=== PATIENT | female | born 1990 | race African-American/Black ===

== ENCOUNTER 2016-07-13 06:23 | Inpatient (IN) | payer OTHER ==
--- NOTE | ~2016-07-13 | PA ---
Unit #: [id number] #: [id number] Patient: JIMI GORDON [id number] [place] [address] [id number] I MR#: [id number] NAME: JIMI GORDON ROOM: P121 Age: 26 Sex: F Admission Date: 07/13/2016 : 1990 Date of Assessment: 07/13/2016 Attending Physician: Franko Gallegos M.D. Admitting Physician: Franko Gallegos M.D. Primary Care Physician: Primary Care Physician No PSYCHIATRIC ASSESSMENT INFORMANTS The patient reliability, poor informant and chart reliability, good. CHIEF COMPLAINT Paranoia. HISTORY OF PRESENT ILLNESS Ms. Kristina Gordon is a 26-year-old female, seen on . The patient was a poor historian, unable to give any reliable information. The patient has a history of psychosis and had treatment at [facility] in 2015. The patient was referred by EPS. The patient's behavior was disorganized, tangential at times, manic, psychotic, delusional, and paranoia. The patient believes the [place] was out to get her. 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 The patient is unsafe to return home, staying at [email or web address] The patient feels unsafe at times going back to homeless care home. The patient has not been sleeping in the last 3 days. No family, mother is in [place]. Mood is labile according to the intake reports and the patient was unable to give any reliable information. PAST PSYCHIATRIC HISTORY Remarkable for history of previous treatment at [facility] and inpatient for psychosis. FAMILY HISTORY AND SOCIAL HISTORY Unavailable. No known history of any abuse known at this time. MEDICAL HISTORY Unremarkable for any chronic medical illness. Musculoskeletal; muscle strength and tone, no atrophy or abnormal movement. Gait normal. MEDICATION HISTORY The patient reports that she was on Latuda, noncompliant with medication. The patient is on Zyrtec, naproxen, and Cortisporin. ALLERGIES No known drug allergies. SUBSTANCE ABUSE HISTORY The patient denied any use of drugs or alcohol. REVIEW OF SYSTEMS Unit #: [id number] #: [id number] Patient: JIMI GORDON HEENT: Eyes, clear. Ears, nose, mouth, and throat; clear. CARDIOVASCULAR: Unremarkable. RESPIRATORY: Unremarkable. GI: Unremarkable. : Unremarkable. SKIN: Unremarkable. LYMPH NODE: Unremarkable. NEUROLOGIC: Unremarkable. ENDOCRINE: Unremarkable. HEMATOLOGIC: Unremarkable. ALLERGIC/IMMUNOLOGIC: Unremarkable. MUSCULOSKELETAL: Muscle strength and tone, no atrophy or abnormal movement. Gait normal. MENTAL STATUS EXAMINATION CONSTITUTIONAL: Measurement of vital signs; temperature 98.4, heart rate 83, blood pressure 104/62, height 5 feet 6 inches, and weight 165 pounds. GENERAL APPEARANCE: The patient dressed casually. The patient did not show any facial deformity. MUSCULOSKELETAL: Please see above. PSYCHIATRIC EXAMINATION Description of speech, slow and long pause. Description of thought process, disorganized. Description of association, the patient was guarded, paranoid, delusional, and mood lability. Description of thought process, circumstantial. Description of the patient's judgment; concerning everyday activity, poor. Social situation, poor. Concerning psychiatric condition, poor. Complete mental status examination; oriented in place and person. Attention span and concentration, poor. Language, able to name object. Fund of knowledge, poor. Vocabulary, poor. Mood and affect, labile. Insight and judgment, poor. ASSETS AND LIABILITIES Assets, the patient is articulate. Liability; history of chronic psychiatric illness, depression, and poor support system. ADMITTING DIAGNOSES Psychiatric: Bipolar mood disorder, not otherwise specified, F31.89 and psychosis, not otherwise specified, F29.0. Secondary diagnosis: Deferred. Medical diagnosis: None. Stressors: Psychosocial stressors. PSYCHIATRIC PLAN AND TREATMENT GOAL AND DISCHARGE PLAN 1. Advised to admit the patient on the inpatient unit. Provide safe, supportive, and structured environment. 2. Ordered labs; CBC, CMP, UA, UDS, and test. 3. The patient to attend all the programing. Advised to resume Latuda, Haldol 5 mg b.i.d., and Cogentin 1 mg b.i.d. The patient to be monitored closely on the inpatient unit. If needed, consider further adjustment of medication. Attend all the programing on the inpatient unit. TREATMENT GOAL Unit #: [id number] #: [id number] Patient: JIMI GORDON To attain euthymic mood and control psychotic symptom. DISCHARGE PLAN Plan to stabilize the patient and consider followup in outpatient program. ESTIMATED LENGTH OF STAY 3 to 5 days. Dictated by... Martita Noel/lcuius TD: 07/13/2016 15:28 JOB #: [id number] PSYCHIATRIC ASSESSMENT X Franko Gallegos MD PSYCHIATRIC ASSESSMENT
--- NOTE | ~2016-07-13 | PN ---
Unit #: [id number] #: [id number] Patient: SUZE GORDON [id number] [facility] [address] [place] [address] [id number] I MR#: [id number] NAME: SUZE GORDON ROOM: P121 Age: 26 Sex: F Admission Date: 07/13/2016 : 1990 Attending Physician: Franko Gallegos M.D. Admitting Physician: Franko Gallegos M.D. Primary Care Physician: Primary Care Physician Latoya TIM PROGRESS NOTES DATE 07/14/2016 DISCUSSION Suze Gordon is a 26-year-old female seen on 07/14/2016. The patient interviewed, chart reviewed. Obtained information from nursing staff. The patient was compliant and cooperative but seclusive, isolative, compliant with medication. No aggressive behavior. Complete review of systems unremarkable. MENTAL STATUS EXAMINATION General appearance, the patient dressed casually. Attention span and concentration fair. Oriented to place and person. Mood and affect sad, dysphoric. Speech regular rate. Thought process goal directed. The patient denied any thoughts of harming self or others or any psychotic symptoms. Recent and remote memory poor. Insight and judgement poor. DIAGNOSES Bipolar mood disorder NOS ASSESSMENT/PLAN Advise to continue with current medication and therapeutic protocol. We will monitor response to medication and make further adjustment of medication if needed. Dictated by... Martita Noel/jarad TD: 07/18/2016 04:05 JOB #: [id number] Unit #: [id number] #: [id number] Patient: SUZE GORDON PROGRESS NOTES X Franko Gallegos MD PROGRESS NOTE
--- NOTE | ~2016-07-13 | DS ---
Unit #: [id number] #: [id number] Patient: JIMI GORDON [id number] [place] [address] [id number] MR#: [id number] NAME: JIMI GORDON ROOM: [facility] Age: 26 Sex: F Admission Date: 07/13/2016 : 1990 Discharge Date: 07/15/2016 Attending Physician: Franko Gallegos M.D. Primary Care Physician: Primary Care Physician No DISCHARGE SUMMARY REASON FOR ADMISSION Paranoia, disorganized thought process, delusional. DIAGNOSTIC STUDIES LABORATORY RESULTS: None. HOSPITAL COURSE The patient was admitted to inpatient unit on 07/13/2016 and discharged on 07/15/2016. The patient was treated on the inpatient unit with medication management and structured milieu. The patient was isolative, guarded during her stay. The patient was able to maintain safe behavior. Denied any psychotic symptom. Subsequently, the patient was discharged on the following medications. DISCHARGE MEDICATIONS Claritin 10 mg daily for allergies, Latuda 20 mg b.i.d. for mood stabilization, Haldol 5 mg b.i.d. for psychosis, Cogentin 1 mg b.i.d. for EPS symptom. The patient needed two antipsychotics as the patient did not respond with one. The patient was tried on Latuda, Haldol, and Risperdal in the past. The patient does not want to be on clozapine because of blood test. Plan to taper off Haldol once the patient's psychotic symptoms are under control. DISCHARGE DIAGNOSES Psychiatric: Bipolar mood disorder, not otherwise specified, F31.89. Secondary diagnosis: Deferred. Medical diagnosis: None. Stressors: Psychosocial stressor. DISCHARGE INSTRUCTIONS The patient to follow up in outpatient clinic as per social work nurse. CONDITION ON DISCHARGE The patient was pleasant and cooperative. Denied any psychotic symptom or any suicidal ideation. PROGNOSIS Guarded. DIET AND ACTIVITY Unit #: [id number] #: [id number] Patient: JIMI GORDON As tolerated. Dictated by... Franko Gallegos M.D. SZC/katel TD: 07/16/2016 05:29 JOB #: [id number] DISCHARGE SUMMARY X Franko Gallegos MD DISCHARGE SUMMARY
--- NOTE | ~2016-07-13 | HP ---
Unit #: [id number] #: [id number] Patient: SUZE GORDON [id number] [place] [address] [id number] I MR#: [id number] NAME: SUZE GORDON ROOM: P121 Age: 26 Sex: F Admission Date: 07/13/2016 : 1990 Attending Physician: Franko Gallegos M.D. Admitting Physician: Franko Gallegos M.D. Primary Care Physician: Primary Care Physician No HISTORY AND PHYSICAL HISTORY OF PRESENT ILLNESS Suze is a 26-year-old female admitted on 07/13/2016 for delusions and paranoia. PAST MEDICAL HISTORY Asthma. PAST SURGICAL HISTORY None. SOCIAL HISTORY No tobacco, alcohol or illegal drug use. Currently single and living at [facility]. FAMILY HISTORY Noncontributory. REVIEW OF SYSTEMS CONSTITUTIONAL: No fever or chills. HEENT: Denies any sore throat, ear pain or runny nose. CARDIOVASCULAR: Denies chest pain, irregular heart rhythm or palpitations. CHEST: Denies shortness of breath or cough. No hemoptysis. GASTROINTESTINAL: Denies nausea, vomiting, diarrhea or chronic constipation. ENDOCRINE: Denies history of increased thirst or urination. No recent significant weight loss or gain. GENITOURINARY: Denies dysuria, frequency, or hematuria. SKIN: Denies any rashes. HEMATOLOGIC: Denies history of increased bleeding or bruising. MUSCULOSKELETAL: Denies any hot, swollen joints. No generalized muscle pain. NEUROLOGIC: Denies problems with vision or speech. No frequent, severe headaches. No numbness, tingling or weakness in any extremities. Denies loss of bladder or bowel control. CURRENT MEDICATIONS 1. Naproxen 2. Zyrtec 3. Latuda 4. Cortisporin Unit #: [id number] #: [id number] Patient: SUZE GORDON ALLERGIES Latex PHYSICAL EXAMINATION GENERAL: Alert, oriented, in no acute distress. VITAL SIGNS: Blood pressure 104/62, heart rate 83, respirations 16, temperature 36.7. HEIGHT: 5 foot 2 inches. WEIGHT: 160 pounds. SKIN: Warm and dry without rash or lesion. HEENT: Normocephalic. TMs not viewed. Oral and nasal passages clear. Conjunctivae clear. PERRLA. EOMs intact. NECK: Supple without lymphadenopathy or thyromegaly. HEART: Regular rate and rhythm without murmur. LUNGS: Clear. ABDOMEN: Soft, nontender, without masses or hepatosplenomegaly. : Not done. EXTREMITIES: No evidence of cyanosis, clubbing or edema. Moves all without focal deficit. NEUROLOGICAL: Grossly within normal limits. Cranial Nerves: II: Visual mason are intact. III, IV AND : Extraocular movements are intact. Pupils are equal, round and reactive to light. V: Facial sensation is grossly normal. VII: Facial movements and expression are normal. VIII: Auditory acuity grossly intact. IX, X: Uvula is midline. Phonation is normal. XI: Patient shrugs shoulders and turns head normally. XII: Tongue protrudes in the midline. Sensory and Motor Function: Sensory and motor sensation is grossly normal. Motor: moves all extremities well. Coordination: Gait is normal. Deep Tendon Reflexes: Intact. IMPRESSION 1. Psychiatric admission. 2. Asthma. RECOMMENDATIONS Psychiatric, per psychiatrist. MEDICAL: I see no contraindications to participating in facility's activities. MEDICAL PROGNOSIS Good. MEDICAL CONDITION Stable. Dictated by... Susanna QuinonezPLauraRVioletta PERES/jarad TD: 07/13/2016 19:50 Unit #: [id number] #: [id number] Patient: SUZE GORDON JOB #: [id number] HISTORY AND PHYSICAL X NICOLLE OLIVARES [employer] B[employer]ER X HISTORY AND PHYSICAL
== END 2016-07-15 13:04 | disposition home or self-care (01) | DRG 885 ==
LOC: P1S 06:23
DX: F31.89 Other bipolar disorder (principal); F29 Unspecified psychosis not due to a substance or known physiological condition; J45.909 Unspecified asthma, uncomplicated